=== PATIENT | male | born 1985 | race Caucasian/White ===

== ENCOUNTER 2024-05-11 17:46 | Emergency (ER) | payer SELFPAY ==
[2024-05-11 17:50] VITALS: BP 158/87
[2024-05-11] MEDS: BACTRIM DS 800 MG/160 MG 1 TABLET PO (19:40)
[2024-05-11] MEDS: TOBREX 0.3% EYE OINTMENT 1 APPLIC OPHTH (19:49)
[2024-05-11 19:56] VITALS: BP 150/97
--- NOTE | 2024-05-11 23:12 | ED.SKININJ ---
HPI-Injury
General
Chief Complaint: Skin Problem
Source: patient
Exam Limitations: none
Time Seen by Provider: 05/11/24 18:54
Nursing documentation reviewed up to this point in time: agreed with
History of Present Illness-Injury
Is this injury a work related problem?: No
Is pt an associate of [facility]?: No
Initial Injury comments:
Patient states he was cleaning with boric acid last week and sustained a chemical burn to his chest. Site began to heal but then he develed small crusting wounds to his upper extremities and face. Treating self with antibiotic ointment without
improvement. Here for eval
Past History
Past History
ED Past Medical History: None
Social History
Tobacco: Non-smoker
Personal:
Living: with family
Employment: Not employed
Review of Systems
Review of Systems
Allergies reviewed?: Yes
All Other Systems: ROS reviewed and negative except as documented in HPI and ROS
Constitutional: Reports no symptoms
EENT: Reports no symptoms
Respiratory: Reports no symptoms
Cardiac: Reports no symptoms
ABD/GI: Reports no symptoms
Musculoskeletal: Reports no symptoms
Skin: Reports other (yellow crusting lesions to face chest and upper extremities.)
Neurological: Reports no symptoms
Psychiatric: Reports no symptoms
Phy Exam
General Physical Exam
General Presentation: well appearing and no apparent distress
General age: appears stated age
General Skin: warm and dry
General Habitus: normal
General Mental: alert
Musculoskeletal Exam
Musculoskeletal Exam: full ROM and neuro vasc intact
Skin Exam
Skin Exam: normal color, warm/dry and other (multiple small yellow crusting lesions to face, chest, upper extremities concerning for impetigo)
Psychiatric Exam
Psychiatric Exam: normal mood/affect
Course
Orders/Labs/Results
Orders:
Orders
05/11/24 19:09
Sulfamethox./Trimethoprim Ds [Bactrim Ds 800 mg/160 mg] 1 tablet PO NOW STA
05/11/24 22:00
Tobramycin 0.3% [Tobrex 0.3% Eye Ointment] See Dose Instructions OPHTH TID
Vital Signs
Initial and Last Documented VS:
Initial Vital Signs
Temp Pulse Resp BP Pulse Ox
98.2 F 69 16 158/87 99
05/11/24 17:50 05/11/24 17:50 05/11/24 17:50 05/11/24 17:50 05/11/24 17:50
Last Documented Vital Signs
Temp Pulse Resp BP Pulse Ox
98.2 F 62 18 150/97 99
05/11/24 17:50 05/11/24 19:56 05/11/24 19:56 05/11/24 19:56 05/11/24 17:50
*Critical Care Note
Total Time (30-74mins, 75-104mins- exclusive of procedures): Not Applicable
ED Attending Note
-
Portions of this chart may have been created with voice recognition software.� Occasional wrong word or��sound alike� substitutions may have occurred due to the inherent limitations of voice recognition software.
Discharge Plan
Departure
Patient Disposition: Home (Routine Discharge)
Date of Disposition: 05/11/24
Time of Disposition: 19:10
Patient with high blood pressure during this ER visit?: No
Covid-19: Not Applicable
Discharge Problem:
Rash, skin
Instructions: Skin Rash (DC), Cellulitis (Skin Infection), Adult (DC)
Prescriptions:
New
sulfamethoxazole-trimethoprim [Bactrim DS] 800-160 mg tablet
1 tab PO BID Qty: 20 0RF
mupirocin 2 % ointment
1 applic topical TID Qty: 22 0RF
Activity Restrictions/Additional Instructions:
Follow up with your family doctor.
Interventions
Interventions:
*Risk Screen - Suicide Last Done: 05/11/24 17:48
*General Assessment Last Done: 05/11/24 19:19
*Neglect/Abuse Screening Last Done: 05/11/24 19:19
*Nursing Disposition Last Done: 05/11/24 19:56
ED-Skin Assessment Last Done: 05/11/24 19:19
Discharge Date and Time
Discharge Date/Time: 05/11/24 20:32
Print Language: NIUEAN
== END 2024-05-11 20:32 | disposition home or self-care (01) ==
LOC: EMR 17:46
PROVIDERS: EMERGENCY PHYSICIAN Emergency Medicine
DX: R21 Rash and other nonspecific skin eruption (principal); L98.8 Other specified disorders of the skin and subcutaneous tissue
CPT/HCPCS: 99283

== ENCOUNTER 2024-05-22 08:41 | Emergency (ER) | payer SELFPAY ==
[2024-05-22 08:42] VITALS: BP 137/91
--- NOTE | 2024-05-22 09:10 | ED.GENMED ---
History of Present Illness
<Bob Mooney MD, Resident - Last Filed: 05/22/24 10:10>
General
Chief Complaint: Skin Problem
Source: patient and family
Time Seen by Provider: 05/22/24 08:52
Travel History
Have you traveled to any high risk areas for coronavirus over the past 14 days?: No
Have you had any contact with someone who has COVID-19?: No
Do you have any symptoms of coronavirus? Fever > 100 degrees, chills, cough, shortness of breath, sore throat, loss of taste or smell, muscle aches, or headache?: No
History of Present Illness
History of Present Illness:
Carlos Ny, 39-year-old male, has had a generalized rash since the past couple of days. He was treated for presumed impetigo 2 weeks ago with mupirocin and trimethoprim-sulfamethoxazole (completed the course yesterday). The rash is on his face,
trunk, back and all extremities. The rash is not itchy or painful, and he has no other associated symptoms. He did have mild fatigue and weakness that preceded the rash - now resolved. He feels well otherwise. Never experienced a rash like this in
the past.
Past History
<Bob Mooney MD, Resident - Last Filed: 05/22/24 10:10>
Past History
ED Past Medical History: Other (chicken pox)
Social History
Tobacco: Non-smoker
Personal:
Living: with family
Employment: Not employed
Review of Systems
<Bob Mooney MD, Resident - Last Filed: 05/22/24 10:10>
Review of Systems
All Other Systems: Not applicable
Constitutional: Reports no symptoms
EENT: Reports no symptoms
Respiratory: Reports no symptoms
Cardiac: Reports no symptoms
ABD/GI: Reports no symptoms
: Reports no symptoms
Musculoskeletal: Reports no symptoms
Skin: Reports rash
Neurological: Reports no symptoms
Endocrine: Reports no symptoms
Hematologic/Lymphatic: Reports no symptoms
Psychiatric: Reports no symptoms
Phy Exam
<Bob Mooney MD, Resident - Last Filed: 05/22/24 10:10>
General Physical Exam
General Presentation: well appearing and no apparent distress
General Skin: warm and dry
General Habitus: normal
General Mental: alert
General Hydration: appears well hydrated
ENT Exam
ENT Exam: EOMI, pharynx normal, neck supple and normocephalic
Eye Exam
Eye Exam: PERRL, cornea clear and conjunctiva normal
Cardiovascular Exam
Cardiovascular Exam: regular rate/rhythm, no edema, no murmur and normal peripheral pulses
Pulmonary Exam
Pulmonary Exam: lungs clear, no respiratory distress, no rales, no crackles, no rhonchi, no stridor, no wheezing and no cough
Gastrointestinal Exam
Gastrointestinal Exam: normal bowel sounds, non tender, soft, no organomegaly, no pulsatile mass and non distended
Neurological Exam
Neurological Exam: alert, oriented x3, no motor deficits and speech normal
Musculoskeletal Exam
Musculoskeletal Exam: full ROM and no edema
Skin Exam
Skin Exam: warm/dry and other (multiple rounded erythematous patches and macules with prominent well-demarcated microvesicular boundaries; central erythema less prominent with occasional edema)
Psychiatric Exam
Psychiatric Exam: normal mood/affect
Course
<Bob Mooney MD, Resident - Last Filed: 05/22/24 10:10>
Orders/Labs/Results
Orders:
Orders
05/22/24 09:06
Diphenhydramine [Benadryl] 25 mg PO NOW STA
Vital Signs
Initial and Last Documented VS:
Initial Vital Signs
Temp Pulse Resp BP Pulse Ox
98.4 F 100 18 137/91 100
05/22/24 08:42 05/22/24 08:42 05/22/24 08:42 05/22/24 08:42 05/22/24 08:42
Last Documented Vital Signs
Temp Pulse Resp BP Pulse Ox
98.4 F 100 18 137/91 100
05/22/24 08:42 05/22/24 08:42 05/22/24 08:42 05/22/24 08:42 05/22/24 08:42
<Pavel Leone DO - Last Filed: 05/22/24 09:22>
Orders/Labs/Results
Orders:
Orders
05/22/24 09:06
Diphenhydramine [Benadryl] 25 mg PO NOW STA
Vital Signs
Initial and Last Documented VS:
Initial Vital Signs
Temp Pulse Resp BP Pulse Ox
98.4 F 100 18 137/91 100
05/22/24 08:42 05/22/24 08:42 05/22/24 08:42 05/22/24 08:42 05/22/24 08:42
Last Documented Vital Signs
Temp Pulse Resp BP Pulse Ox
98.4 F 100 18 137/91 100
05/22/24 08:42 05/22/24 08:42 05/22/24 08:42 05/22/24 08:42 05/22/24 08:42
<Bob Mooney MD, Resident - Last Filed: 05/22/24 10:10>
*Critical Care Note
Total Time (30-74mins, 75-104mins- exclusive of procedures): Not Applicable
ED Attending Note
<Bob Mooney MD, Resident - Last Filed: 05/22/24 10:10>
-
Portions of this chart may have been created with voice recognition software.� Occasional wrong word or��sound alike� substitutions may have occurred due to the inherent limitations of voice recognition software.
<Pavel Leone, DO - Last Filed: 05/22/24 09:22>
ED Attending Note
Patient seen and examined by attending physician: Yes
I performed a history and physical exam of patient and discussed management with resident, I reviewed resident's note and agree with documented findings and plan of care.: Yes
ED Attending Note:
I have seen and evaluated the patient with a [id number] encounter. I have spoken to the advance practicer provider and involved in the medical history, the physical exam, medical decision making.
Evaluation and management service: agree unless noted differently below.
Results interpretation: agree unless noted differently below.
Focused HPI: 39-year-old male presenting with generalized rash. He woke up and noted the symptoms. Patient just finished a course of Bactrim yesterday for impetigo in his ear. That is cleared up. He denies any itching or fevers
Physical exam: Generalized rash to abdomen which is blanching and target lesions noted. No mucous membrane involvement
Medical Decision Making: Rash consistent with erythema multiforme. This is likely a reaction from Bactrim. No evidence of Hardy-Rigoberto. Discussed expected management
Discharge Plan
Departure
Patient Disposition: Home (Routine Discharge)
Date of Disposition: 05/22/24
Time of Disposition: 10:06
Patient with high blood pressure during this ER visit?: Yes
Condition: Good
Discharge Problem:
Erythema multiforme
Instructions: Erythema multiforme
Prescriptions:
No Action
sulfamethoxazole-trimethoprim [Bactrim DS] 800-160 mg tablet
1 tab PO BID Qty: 20 0RF
mupirocin 2 % ointment
1 applic topical TID Qty: 22 0RF
Referrals:
NONE,* [Family Provider] -
Activity Restrictions/Additional Instructions:
Rash likely because of a viral infection or an adverse reaction to Bactrim. This will resolve by itself within 1-3 weeks. Can resume activity as tolerated. Take hydroxyzine or Benadryl as needed.
Discharge Date and Time
Print Language: YEMENI
[2024-05-22] MEDS: BENADRYL 25 MG PO (09:18)
== END 2024-05-22 10:18 | disposition home or self-care (01) ==
LOC: EMR 08:41
PROVIDERS: EMERGENCY PHYSICIAN Student in an Organized Health Care Education/Training Program
DX: L51.9 Erythema multiforme, unspecified (principal); R03.0 Elevated blood-pressure reading, without diagnosis of hypertension; Z88.1 Allergy status to other antibiotic agents; Z91.030 Bee allergy status; Z88.2 Allergy status to sulfonamides; Z91.018 Allergy to other foods
CPT/HCPCS: 99283

== ENCOUNTER 2024-11-24 01:46 | Emergency (ER) | payer SELFPAY ==
[2024-11-24 01:56] VITALS: BP 162/94
--- NOTE | 2024-11-24 02:50 | ED.GENMED ---
History of Present Illness
General
Chief Complaint: Insect Sting
Source: patient
Exam Limitations: none
Time Seen by Provider: 11/24/24 02:20
History of Present Illness
History of Present Illness:
See MDM
Past History
Past History
ED Past Medical History: Other (chicken pox)
Social History
Tobacco: Non-smoker
Personal:
Living: with family
Employment: Not employed
Phy Exam
Physical Exam
Physical Exam:
See MDM
Course
Orders/Labs/Results
Orders:
Orders
11/24/24 02:50
Doxycycline [Vibramycin] 200 mg PO NOW STA
Vital Signs
Initial and Last Documented VS:
Initial Vital Signs
Temp Pulse Resp BP Pulse Ox
98.3 F 86 20 162/94 100
11/24/24 01:56 11/24/24 01:56 11/24/24 01:56 11/24/24 01:56 11/24/24 01:56
Last Documented Vital Signs
Temp Pulse Resp BP Pulse Ox
98.3 F 86 20 162/94 98
11/24/24 01:56 11/24/24 01:56 11/24/24 01:56 11/24/24 01:56 11/24/24 01:56
Procedures
Foreign Body Removal-Skin
Wound explored and foreign body removed?: Yes
Foreign body removed using: forceps
Foreign body removed: completely (Tick completely removed from glans of penis)
MDM/Problems Addressed
Differential Diagnosis Includes:
HPI and MDM Narrative:
39-year-old male presenting for evaluation of a tick on his penis. He noted earlier today. Patient was playing football in tall grass earlier in the day. When he realized that the tick was on his penis, his girlfriend try to remove it with her
long nails. It was only partially removed and the legs were left embedded in his penis. I used mosquito forceps an 18-gauge needle to manually remove pieces of the tick. Patient tolerated procedure well. Given that the tick was embedded less
than 12 hours, doubt transmission of Lyme disease. Will give one-time dose of 200 mg of doxycycline
Physical exam
General: Well appearing and non-toxic
HEENT: protecting airway
Neck: appears supple
CV: No evidence of cyanosis
Resp: No accessory muscle use
Abd: Non-distended
Extremities: No deformities
Neuro: alert
Psych: Normal affect
Skin: Pieces of tick embedded to anterior aspect of glans of penis
Problems Addressed including Acute and Chronic Conditions affecting care:
1. Tick embedded in penis
Acuity: acute
Prognosis: stable
Details: Patient removed the racks of tick leaving behind legs. I manually removed the rest of the tick without complication. Will give one-time dose of high-dose Doxy
Differential Diagnosis (but not limited to): Tick bite, insect bite
Drug therapy (if applicable): OTC meds, please see d/c instruction regarding Rx drugs
Amount and/or Complexity of Data Reviewed
Clinical info obtained from: Patient
External data reviewed: N/A
Labs I independently reviewed (but not limited to): N/A
Radiology: N/A
Pulse Ox: not hypoxic
EKG independently reviewed: N/A
Graphite Grinder: N/A
Critical Care: N/A
Risk of Complication:
Social Determinants of health: Good social support
Discussed with other providers: N/A
Escalation of Care includes Admit/Obs: After being observed in the Emergency Department, pt stable for discharge.
Occasional wrong word or 'sound a like' substitutions may have occurred due to the inherent limitations of voice recognition software. Read the chart carefully and recognize, using context, where substitutions have occurred.
*Critical Care Note
Total Time (30-74mins, 75-104mins- exclusive of procedures): Not Applicable
ED Attending Note
-
Portions of this chart may have been created with voice recognition software.� Occasional wrong word or��sound alike� substitutions may have occurred due to the inherent limitations of voice recognition software.
Discharge Plan
Departure
Patient Disposition: Home (Routine Discharge)
Date of Disposition: 11/24/24
Time of Disposition: 02:55
Patient with high blood pressure during this ER visit?: Yes
Discharge Problem:
Tick bite
Instructions: Insect Bites and Stings (DC), BLOOD PRESSURE
Prescriptions:
No Action
No Current Medications
0
Activity Restrictions/Additional Instructions:
Please return for any worsening symptoms.
You may return at any time if you have further concerns.
Please follow up with your doctor at the first available appointment, preferably this week.
Given that the tick was attached less than 24 hours, this significantly decreases the transmission of Lyme disease. I gave you a one-time dose of high-dose doxycycline.
Thank you for choosing [facility].
Interventions
Interventions:
*Risk Screen - Suicide Last Done: 11/24/24 01:56
*General Assessment Last Done: 11/24/24 01:56
*Neglect/Abuse Screening Last Done: 11/24/24 01:56
*ED- Fall Risk Assessment Last Done: 11/24/24 01:56
*ED COVID-19 Vaccine History Last Done: 11/24/24 01:56
Discharge Date and Time
Print Language: SERBIAN
[2024-11-24] MEDS: VIBRAMYCIN 200 MG PO (02:58)
== END 2024-11-24 03:02 | disposition home or self-care (01) ==
LOC: EMR 01:46
PROVIDERS: EMERGENCY PHYSICIAN Student in an Organized Health Care Education/Training Program
DX: S30.862A Insect bite (nonvenomous) of penis, initial encounter (principal); W57.XXXA Bitten or stung by nonvenomous insect and other nonvenomous arthropods, initial encounter
CPT/HCPCS: 99282